=== PATIENT | male | born 2000 | race Caucasian/White ===

== ENCOUNTER 2020-06-02 17:15 | Emergency (ER) | payer OTHER ==
[2020-06-02] MEDS ORDERED: NAPROSYN500 MG PO (19:45)
== END 2020-06-02 19:55 | disposition home or self-care (01) ==
LOC: ER1 17:15
DX: S62.314A Displaced fracture of base of fourth metacarpal bone, right hand, initial encounter for closed fracture (principal); S62.316A Displaced fracture of base of fifth metacarpal bone, right hand, initial encounter for closed fracture; F17.220 Nicotine dependence, chewing tobacco, uncomplicated; Y92.009 Unspecified place in unspecified non-institutional (private) residence as the place of occurrence of the external cause; W22.8XXA Striking against or struck by other objects, initial encounter
CPT/HCPCS: 73130; 99283